=== PATIENT | female | born 1970 ===

== ENCOUNTER 2022-01-31 01:18 | Inpatient (IN) | payer MEDICARE ==
[~2022-01-31] VITALS: Ht 160 cm; Wt 88.2 kg
[2022-01-31] MEDS ORDERED: PANTOPRAZOLE 40 MG (PROTONIX) VIAL IV ONE (01:45)
[2022-01-31] MEDS ORDERED: NS IV 500 ML 500 ML IV SCH ×2 (01:45)
[2022-01-31 05:13] LABS: BASOPHILS # (AUTO) 0.1 10^3/uL (0.0-0.1); BASOPHILS % (AUTO) 1 % (0-10); EOSINOPHILS # (AUTO) 0.1 10^3/uL (0.0-0.3); EOSINOPHILS % (AUTO) 1 % (0-10); HEMATOCRIT 23 % (35-52); LYMPHOCYTES # (AUTO) 2.5 10^3/uL (1.0-4.0); LYMPHOCYTES % (AUTO) 22 % (12-44); MEAN CORPUSCULAR HEMOGLOBIN 23 pg (25-34); MEAN CORPUSCULAR HGB CONC 29 g/dL (32-36); MEAN CORPUSCULAR VOLUME 78 fL (80-99); MEAN PLATELET VOLUME 9.5 fL (9.0-12.2); MONOCYTES # (AUTO) 1.2 10^3/uL (0.0-1.0); MONOCYTES % (AUTO) 10 % (0-12); NEUTROPHILS # (AUTO) 7.5 10^3/uL (1.8-7.8); NEUTROPHILS % (AUTO) 66 % (42-75); PLATELET COUNT 423 10^3/uL (130-400); WHITE BLOOD COUNT 11.4 10^3/uL (4.3-11.0)
[2022-01-31 05:18] LABS: HEMOGLOBIN 6.7 g/dL (11.5-16.0)
[2022-01-31] MEDS: NS IV 1000 ML 1,000 ML IV SCH ×3 (05:20→21:45)
[2022-01-31 05:31] LABS: ALBUMIN 3.9 GM/DL (3.2-4.5); POTASSIUM 3.8 MMOL/L (3.6-5.0)
[2022-01-31 05:33] LABS: CALCIUM 9.2 MG/DL (8.5-10.1)
[2022-01-31 05:34] LABS: TOTAL PROTEIN 6.9 GM/DL (6.4-8.2)
[2022-01-31 05:35] LABS: BILIRUBIN,TOTAL 0.5 MG/DL (0.1-1.0)
--- NOTE | 2022-01-31 05:36 | Tele-ICU Progress Note ---
Progress Note 54F w/o sig PMH presented to OSH for a syncopal episode. At outside ER, found to have Hg 4.5. No history of GIB, no hematemesis. Stool maybe a little bit darker but no overt bleeding. Has been a little weak and tired for the past week. Stool positive for occult blood. After completing 2 units. After 2u, incremented to 6.7, a 3rd unit is being prepared. She has not had any tachycardia or hypotension. - anemia: secondary to subacute blood loss. HD stable and relatively as ymptomatic. Incrementing appropriately. 3rd unit to start when crossed. - GIB: suspected culprit. Most likely causes PUD and colon ca, unable to narrow differentials by history. GI consulted. Focused Exam Height, Weight, BMI Height: '" Weight: lbs. oz. kg; BMI Method: SANTANA HARRIS MD Jan 31, 2022 05:36
[2022-01-31 05:38] LABS: CREATININE SERUM 0.86 MG/DL (0.60-1.30)
[2022-01-31 06:11] LABS: HYPOCHROMASIA MODERATE; LYMPHOCYTES % (MANUAL) 17 %; METAMYELOCYTES % 1 %; MICROCYTOSIS SLIGHT; MONOCYTES % (MANUAL) 5 %; NEUTROPHILS % (MANUAL) 77 %; NUCLEATED RED BLOOD CELLS 3
[2022-01-31 06:20] VITALS: BP 155/83
[2022-01-31 06:40] VITALS: BP 147/79
[2022-01-31 07:00] VITALS: BP 146/78
[2022-01-31] MEDS: PANTOPRAZOLE 40 MG (PROTONIX) VIAL IV SCH ×2 (08:55→20:39)
--- NOTE | 2022-01-31 09:22 | History & Physical-Hospitalist ---
History of Present Illness HPI/Chief Complaint Patient is a 51-year-old female with past medical history of asthma, HTN, deafness who presented to outside facility due to near syncope. She states her symptoms have been going on for couple weeks and she thought her shortness of breath was due to her asthma. Yesterday she was walking and became very short of breath and thought she was going to pass out so had to sit down. She decided to seek evaluation in the emergency room because of the symptoms. She was found to have a hemoglobin of 4.2 and Hemoccult positive stool test. She was transferred here for surgical consultation. She reports feeling well today that her shortness of breath is improving. Video housekeeping lead was used for ASL. Source: patient Exam Limitations: language barrier Date Seen 01/31/22 Time Seen by a Provider: 09: Attending Physician No,Local Physician PCP Admitting Physician: Marcy Cullen MD Attending Physician: Marcy Cullen MD Referring Physician Date of Admission Jan 31, 2022 at 04:38 Home Medications & Allergies Home Medications Reviewed patient Home Medication Reconciliation performed by pharmacy medication reconciliations detail technician and/or nursing. Patients Allergies have been reviewed. Allergies Allergies Coded Allergies No Known Drug Allergies (Unverified01/31/22) Past Ypyjveg-Rlcnsu-Ekhvqf Hx Patient Social History Marrital Status: Tobacco Use?: No Smoking Status: Never a Smoker Smokeless Tobacco Frequency: Never a User Use of E-Cig and/or Vaping dev: No Substance use?: No Alcohol Use?: No Pt feels they are or have been: No Immunizations Up To Date Tetanus Booster (TDap): Less Than 5 Years Hepatitis A: No Hepatitis B: No Current Status status: No status: No Advance Directives: No Communicates: Signs Primary Language: Upper Sorbian Preferred Spoken Language: Upper Sorbian Is interpretation needed?: Yes Sensory deficits: Hearing impairment Implanted or Applied Medical D: None Review of Systems ROS-Unable to Obtain: limited by deafness Constitutional: see HPI EENTM: hearing loss (chronic) Respiratory: cough, dyspnea on exertion, short of breath Cardiovascular: No chest pain Gastrointestinal: No abdominal pain, No constipation, No diarrhea, No hematemesis, No melena, No nausea, No vomiting Physical Exam Physical Exam Vital Signs Vital Signs - First Documented 01/31/22 01/31/22 04:45 06:20 Temp 36.9 Pulse 88 Resp 29 B/P (MAP) 173/81 (111) Pulse Ox 100 O2 Delivery Room Air Capillary Refill : Height, Weight, BMI Height: '" Weight: lbs. oz. kg; 35.78 BMI Method: General Appearance: No Apparent Distress, WD/WN, Obese HEENT: PERRL/EOMI, Moist Mucous Membranes; No Scleral Icterus (L), No Scleral Icterus (R) Neck: Normal Inspection, Supple Respiratory: Lungs Clear, No Accessory Muscle Use, No Respiratory Distress Cardiovascular: Regular Rate, Rhythm, No JVD, No Murmur Gastrointestinal: Normal Bowel Sounds, Non Tender, Soft Extremity: Normal Capillary Refill, No Calf Tenderness, No Pedal Edema Neurologic/Psychiatric: Alert, Oriented x3, Normal Mood/Affect Skin: Normal Color, Warm/Dry Results Results/Procedures Labs Laboratory Tests 01/31/22 04:54 01/31/22 12:25 02/01/22 03:59 Patient resulted labs reviewed. Assessment/Plan Admission Diagnosis GI Bleed with severe anemia Admission Status: Inpatient Order (span 2 midnights) Reason for Inpatient Admission: see below Assessment and Plan GI Bleed with severe anemia Hgb 4.2 at OSH Up to 6.7 with 2 units Surgery consulted, appreciate recs PPI Will need scope, defer timing to surgery HTN BP a little elevated Trend Will allow mild elevation given GI bleed Diagnosis/Problems Diagnosis/Problems (1) GI bleed (2) Anemia (3) HTN (hypertension) (4) Obesity (5) MARCY Segovia MD Jan 31, 2022 09:22
--- NOTE | 2022-01-31 12:03 | CONSULTATION REPORT ---
DATE OF SERVICE: 01/31/2022 HISTORY OF PRESENT ILLNESS: The patient is a 51-year-old female, who has a history of congenital hearing loss. She is able to communicate with sign language as well as mouthing words and can read lips. She had reported fatigue and had noticed some darker stools more recently. She was found to be significantly anemic with a hemoglobin in the 5 range. She has not had a colonoscopy up to this point in her life. She does not report any history of gastroesophageal reflux disease or peptic ulcer disease. PAST MEDICAL HISTORY: Congenital hearing loss. ALLERGIES: No known drug allergies. MEDICATIONS: None. SOCIAL HISTORY: Negative smoke and negative alcohol. FAMILY HISTORY: Noncontributory. REVIEW OF SYSTEMS: A well-nourished female, currently in no acute distress. She is not experiencing any shortness of breath or difficulty in breathing. No chest pain, palpitations or diaphoresis. No nausea, vomiting. No hematemesis and no coffee ground emesis. She does not report any epigastric pain, some slightly darker stools. No red blood per rectum. No fever, chills, and no recent inadvertent weight loss. All other review of systems negative. PHYSICAL EXAMINATION: VITAL SIGNS: Temperature 36.8, blood pressure 166/87, pulse 89, respirations 14, and pulse ox 96% on room air. CHEST: Clear. Good breath sounds bilaterally. HEART: Regular and no murmurs. EXTREMITIES: No lower extremity edema and negative Homans sign. HEENT: No scleral icterus. NECK: No cervical lymphadenopathy. ABDOMEN: Soft, nontender, and nondistended. No palpable masses. SKIN: Warm and dry. LABORATORY DATA: WBC 11.4, hemoglobin 6.7, hematocrit 23, and platelets 423. BUN 11 and creatinine 0.86. ASSESSMENT AND PLAN: A 51-year-old female with anemia of unknown source with darker stools, which may indicate a gastrointestinal bleed. She has also not had a colonoscopy up to this point in life and we will proceed with an EGD and colonoscopy on this admission. Job ID: [id number] DocumentID: [id number] Dictated Date: 01/31/2022 11:52:36 Washing And Screening Plant Supervisor Date: 01/31/2022 12:02:53 Dictated By: CELESTINO MCGILL MD
--- NOTE | 2022-01-31 12:18 | Progress Note-Pre Operative ---
Pre-Operative Progress Note Date of Available H&P: Jan 31, 2022 Date H&P Reviewed: Jan 31, 2022 Time H&P Reviewed: 12:00 History & Physical: No changes noted Pre-Operative Diagnosis: anemia CELESTINO MCGILL MD Jan 31, 2022 12:17
[2022-01-31 12:52] LABS: HEMOGLOBIN 7.3 g/dL (11.5-16.0)
[2022-01-31] MEDS: MILK OF MAGNESIA 400 MG/5 ML 30 ML UDC PO SCH ×4 (15:50→23:56)
--- NOTE | 2022-01-31 22:56 | Progress Note ---
Standard Progress Note Progress Notes/Assess & Plan Date Seen by a Provider: Jan 31, 2022 Time Seen by a Provider: 22:55 Progress/Assessment & Plan pt c/o headache, will order Tylenol, LFT's ok RADHA JENSEN MD Jan 31, 2022 22:56
[2022-01-31] MEDS: ACETAMINOPHEN 325 MG TABLET PO PRN (23:56)
[2022-02-01] MEDS: MILK OF MAGNESIA 400 MG/5 ML 30 ML UDC PO SCH ×3 (04:16→14:26)
[2022-02-01 04:34] LABS: HEMATOCRIT 25 % (35-52); HEMOGLOBIN 7.5 g/dL (11.5-16.0); MEAN CORPUSCULAR HEMOGLOBIN 24 pg (25-34); MEAN CORPUSCULAR HGB CONC 30 g/dL (32-36); MEAN CORPUSCULAR VOLUME 78 fL (80-99); MEAN PLATELET VOLUME 9.4 fL (9.0-12.2); PLATELET COUNT 387 10^3/uL (130-400); WHITE BLOOD COUNT 8.8 10^3/uL (4.3-11.0)
[2022-02-01 04:47] LABS: POTASSIUM 3.3 MMOL/L (3.6-5.0)
[2022-02-01 04:48] LABS: CALCIUM 9.2 MG/DL (8.5-10.1)
[2022-02-01 04:52] LABS: CREATININE SERUM 0.74 MG/DL (0.60-1.30)
[2022-02-01] MEDS ORDERED: NS IV 500 ML 500 ML IV PRN (05:15)
[2022-02-01] MEDS ORDERED: MAGNESIUM 1 GM/100 ML IVPB 100 ML IV SCH (06:00)
[2022-02-01] MEDS ORDERED: POTASSIUM CL 10MEQ/50ML IVPB 50 ML IV SCH (06:00)
[2022-02-01] MEDS ORDERED: KCL 20 MEQ TAB (K-DUR) PO SCH ×2 (06:00)
[2022-02-01] MEDS: POTASSIUM CL 10MEQ/50ML IVPB 50 ML IV SCH ×4 (06:36→10:00)
[2022-02-01] MEDS: PANTOPRAZOLE 40 MG (PROTONIX) VIAL IV SCH ×2 (08:46→19:44)
[2022-02-01] MEDS: NS IV 1000 ML 1,000 ML IV SCH (08:47)
--- NOTE | 2022-02-01 09:06 | Tele-ICU Progress Note ---
Subjective Date Seen by a Provider: Feb 01, 2022 Subjective/Events-last exam This virtual visit was conducted using real time audio/video. Thank you for asking us to see this patient for subacute GIB Recent events: choked on pill earlier. Has recd 3 Units PRBCs PE: VSS. O2 sat 96% on RA. HEENT: No obvious masses, adenopathy or JVD. Chest: clear to auscultation. CV: RRR S1 S2 No murmur or added sounds. Abd: Non-tender. Bowel sounds Y. : Unremarkable. Hurtado N. DIAPHRAGM BUILDER/psychiatric: Grossly intact. No obvious focal findings. Extremities: No edema. Capillary refill < 3 seconds. Skin: unremarkable. Results: Decreased Hb 7.5, K 3.3. Available chart/ vitals / labs / images reviewed. Video assessment done using teleICU camera, rest of exam as per RN. A/P: Critical Care: critically ill patient. Cont. PPI, IVF. Replace K For panendoscopy today. Discussed with WILY Paz. Asked RN to reach out to eICU if any questions or concerns later. Time spent with patient/coordination of care with other health professionals (mins):20 Sepsis Event Evaluation Height, Weight, BMI Height: '" Weight: lbs. oz. kg; 35.78 BMI Method: Exam Exam Patient acknowledged, consented, and participated in this virtual visit which was conducted using real time audio/video Vital Signs Date Time Temp Pulse Resp B/P (MAP) Pulse Ox O2 Delivery O2 Flow Rate FiO2 02/01/22 08:00 92 28 131/67 (88) 94 Room Air 02/01/22 07:32 37.0 02/01/22 07:00 109 22 99 Room Air 02/01/22 07:00 104 02/01/22 06:00 83 17 153/75 (101) 97 Room Air 02/01/22 05:00 84 17 161/93 (115) 95 Room Air 02/01/22 04:00 98 Room Air 02/01/22 04:00 85 12 135/74 (94) 96 Room Air 02/01/22 03:00 85 13 126/65 (85) 93 Room Air 02/01/22 02:00 90 34 133/69 (90) 96 Room Air 02/01/22 01:00 93 20 140/67 (91) 96 Room Air 02/01/22 01:00 100 02/01/22 00:00 113 27 154/88 (110) 99 Room Air 02/01/22 00:00 97 Room Air 01/31/22 23:00 89 22 131/74 (93) 95 Room Air 01/31/22 22:00 84 19 130/71 (90) 94 Room Air 01/31/22 21:00 85 17 145/78 (100) 98 Room Air 01/31/22 20:00 98 Room Air 01/31/22 20:00 84 19 143/79 (100) 96 Room Air 01/31/22 19:37 37.1 01/31/22 19:00 91 24 143/78 (99) 97 Room Air 01/31/22 19:00 90 01/31/22 18:00 103 19 145/71 (95) 97 Room Air 01/31/22 17:00 98 24 150/84 (106) 97 Room Air 01/31/22 16:00 97 Room Air 01/31/22 16:00 90 15 163/83 (109) 98 Room Air 01/31/22 15:45 37.1 01/31/22 15:00 90 16 149/76 (100) 95 Room Air 01/31/22 14:00 93 13 147/75 (99) 96 Room Air 01/31/22 13:00 79 28 135/73 (93) 94 Room Air 01/31/22 13:00 89 01/31/22 12:00 97 Room Air 01/31/22 12:00 36.5 01/31/22 12:00 87 14 154/82 (106) 96 Room Air 01/31/22 11:00 89 14 166/87 (113) 96 Room Air 01/31/22 10:00 93 15 152/84 (106) 97 Room Air I & O 02/01/22 07:00 Intake Total 4550 ml Balance 4550 ml Height & Weight Height: '" Weight: lbs. oz. kg; 35.78 BMI Method: General Appearance: No Apparent Distress, WD/WN, Obese HEENT: PERRL/EOMI, Moist Mucous Membranes; No Scleral Icterus (L), No Scleral Icterus (R) Neck: Normal Inspection, Supple Respiratory: Lungs Clear, No Accessory Muscle Use, No Respiratory Distress Cardiovascular: Regular Rate, Rhythm, No JVD, No Murmur Extremity: Normal Capillary Refill, No Calf Tenderness, No Pedal Edema Neurologic/Psychiatric: Alert, Oriented x3, Normal Mood/Affect Skin: Normal Color, Warm/Dry Results Lab Laboratory Tests 01/31/22 04:54 01/31/22 12:25 02/01/22 03:59 Assessment/Plan Assessment/Plan See free text. Critical Care: Critically Ill Patient BOBBY HOOK MD Feb 01, 2022 09:06
--- NOTE | 2022-02-01 10:05 | Progress Note - Hospitalist ---
Subjective HPI/CC On Admission Date Seen by Provider: Feb 01, 2022 Time Seen by Provider: 10:00 Patient is a 51-year-old female with past medical history of asthma, HTN, deafness who presented to outside facility due to near syncope. She states her symptoms have been going on for couple weeks and she thought her shortness of breath was due to her asthma. Yesterday she was walking and became very short of breath and thought she was going to pass out so had to sit down. She decided to seek evaluation in the emergency room because of the symptoms. She was found to have a hemoglobin of 4.2 and Hemoccult positive stool test. She was transferred here for surgical consultation. She reports feeling well today that her shortness of breath is improving. Video packing inspector was used for ASL. Subjective/Events-last exam ASL interpretor used ([place]) Patient reports doing well. No complaints. [place] earlier but better with Tylenol. Planning for scope today. Objective Exam Vital Signs Vital Signs Date Time Temp Pulse Resp B/P (MAP) Pulse Ox O2 Delivery O2 Flow Rate FiO2 02/01/22 09:00 112 23 Room Air 02/01/22 08:00 98 02/01/22 07:32 37.0 Capillary Refill : General Appearance: No Apparent Distress, WD/WN Respiratory: Lungs Clear, No Respiratory Distress Cardiovascular: Regular Rate, Rhythm, No Murmur Gastrointestinal: Normal Bowel Sounds, Non Tender, Soft Neurologic/Psychiatric: Alert, Oriented x3 Results/Procedures Lab Laboratory Tests 01/31/22 12:25 02/01/22 03:59 Patient resulted labs reviewed. Assessment/Plan Assessment and Plan Assess & Plan/Chief Complaint GI Bleed with severe anemia Hgb 4.2 at OSH Up to 7.5 this AM and stable after 3 total units pRBCs Surgery consulted, appreciate recs Planning for scope today PPI HTN BP improved this AM Trend DVT ppx: SCDs only Critical Care Critically Ill Patient Diagnosis/Problems Diagnosis/Problems (1) GI bleed (2) Anemia (3) HTN (hypertension) (4) Obesity (5) MARCY Segovia MD Feb 01, 2022 10:05
[2022-02-01] MEDS ORDERED: LACTATED RINGERS 1,000 ML IV STA (10:40)
[2022-02-01] MEDS ORDERED: LIDOCAINE JELLY 2% 6 ML SYRINGE MM PRN (10:45)
[2022-02-01] MEDS ORDERED: HURRICAINE EXT TUBE (BENZOCAINE) XX PRN (10:45)
[2022-02-01] MEDS ORDERED: LACTATED RINGERS 1,000 ML IV ONE (11:13)
[2022-02-01] MEDS ORDERED: MIDAZOLAM 2 MG/2 ML (VERSED) VIAL ONE (13:55)
[2022-02-01] MEDS ORDERED: PROPOFOL INJECTION 50 ML IV ONE ×2 (13:55→14:18)
[2022-02-01] MEDS ORDERED: HURRICAINE EXT TUBE (BENZOCAINE) ONE (13:56)
[2022-02-01] MEDS ORDERED: LIDOCAINE JELLY 2% 6 ML SYRINGE ONE (13:56)
[2022-02-01 14:35] VITALS: BP 140/72
[2022-02-01 14:40] VITALS: BP 133/76
--- NOTE | 2022-02-01 14:40 | Anesthesia-General Post-Op ---
MAC Patient Condition Mental Status/LOC: Same as Preop Cardiovascular: Satisfactory Nausea/Vomiting: Absent Respiratory: Satisfactory Pain: Controlled Complications: Absent Post Op Complications Complications None Follow Up Care/Instructions Patient Instructions None needed. Anesthesiology Discharge Order Discharge Order Patient is doing well, no complaints, stable vital signs, no apparent adverse anesthesia problems. No complications reported per nursing. LANA NEGRETE CRNA Feb 01, 2022 14:40
[2022-02-01 14:45] VITALS: BP 134/74
--- NOTE | 2022-02-01 14:45 | Progress Note-Post Operative ---
Post-Operative Progess Note Surgeon (s)/Hot Top Liner (s) Surgeon CELESTINO MCGILL MD Hot Top Liner: none Pre-Operative Diagnosis anemia Post-Operative Diagnosis reflux esophagus(grade C) with stricture, large HH(5cm), moderate gastritis. mild chronic stage 1 ext and int hemorrhoids. mild sigoid diverticulosis. Procedure & Operative Findings Date of Procedure 02/01/22 Procedure Performed/Findings EGD with bx and balloon. colonoscopy. Anesthesia Type mac Estimated Blood Loss Estimated blood loss (mL): minimal Specimens/Packing Specimens Removed ge jxn, ulcer, antrum. CELESTINO MCGILL MD Feb 01, 2022 14:45
--- NOTE | 2022-02-01 21:36 | OPERATIVE REPORT ---
DATE OF SERVICE: 02/01/2022 ADMITTING PHYSICIAN: Dr. Cullen. PreopDx:anemia PostopDx:reflux esophagitis(grade C),esophageal stricture,large HH,moderate gastritis. mild chronic stage 1 ext and int hemorrhoids,mild sigmoid diverticulosis. Procedure:EGD with bx and balloon dilatation Colonoscopy Surgeon:Yvette Anesth:MAC EBL:minimal Disp:stable condition INDICATIONS: The patient is a 51-year-old female who reported feeling fatigued and noticing darker stools. She had workup done and was found to be significantly anemic with a hemoglobin in the 5 range. The patient does have a history of congenital hearing loss; however, is able to communicate with sign language as well as mouth words and can read lips. She has not had a colonoscopy up to this point in her life. She does not report any classic symptoms of gastroesophageal reflux disease. She also does not report any episodes of hematemesis, no coffee ground emesis. DESCRIPTION OF PROCEDURE: The patient was brought to the endoscopy suite, laid in the left lateral decubitus position. After adequate IV pain and sedative medications and monitored anesthesia care, the mouthpiece was applied. The endoscope was then placed in the mouth, visualizing the pharynx and hypopharyngeal region. Vocal cords, epiglottis and vallecula identified and appeared to be normal. The endoscope was then gently intubated into the esophageal opening and esophagus insufflated. The endoscope was then advanced through the first, second and third portion of esophagus at the level of GE junction, a significant stricture was identified as well as reflux esophagitis Clark grade C. A biopsy was taken with forceps with visualization of good hemostasis. The endoscope was then advanced in the stomach and endoscope retroflexed, visualizing a large hiatal hernia, greater than 5 cm in size and within the reflux portion of the hernia was a small ulcer approximately 5 mm in size with an overlying fibrin clot and no active bleeding. This is consistent with a Agustin's ulcer and the likely cause of her anemia. There was a moderate severity gastritis. Pylorus and duodenum appeared normal. The balloon was then placed in the stomach and pulled back to the area of the stricture. We then proceeded with a graded stepwise dilatation to approximately 4 atmospheres of pressure or 19 mm in luminal diameter with moderate resistance and left this in place for approximately 60 seconds. The balloon was then desufflated and removed with visualization of good hemostasis as well as no mucosal tears. The endoscope was then slowly withdrawn while taking a second look and suctioning of residual air with no additional findings. A digital rectal examination was performed, which revealed mild stage I external and internal hemorrhoids, not actively edematous nor inflamed and no bleeding. Normal sphincter tone was felt and there were no palpable masses. The endoscope was then intubated into the anus and rectum gently insufflated. The endoscope was then advanced through the valves of Long of the rectum with no polyps, nor any neoplasms identified. The endoscope was then advanced through the sigmoid colon where mild sigmoid diverticulosis identified. The endoscope was then advanced through the remainder of the descending, transverse and ascending colon to the cecum, which were normal. There were no polyps or any active bleeding sources identified. The endoscope was then slowly withdrawn while taking a second look and suctioning of residual air with no additional findings. The patient tolerated the procedure well. We will recommend the necessary dietary accommodation including small and more frequent meals, avoiding to eating at night as well as head elevation while lying supine. She also needs to avoid caffeinated beverages, spicy, greasy and acidic foods. Due to the hiatal hernia and the ulceration, we will place her on Protonix 40 mg daily. We will also recommend high fiber diet with incorporation of a fiber supplement, which should equal or exceed 25 grams daily to promote soft stools on a daily basis. No polyps were identified, and she does not have any family history of colon cancer and if asymptomatic, does not need another colonoscopy for another 10 years. Job ID: [id number] DocumentID: [id number] Dictated Date: 02/01/2022 14:46:12 Transcription Coordinator Date: 02/01/2022 21:35:20 Dictated By: CELESTINO MCGILL MD [facility]INE HOSPITALHaydee
[2022-02-02] MEDS: ACETAMINOPHEN 325 MG TABLET PO PRN (02:56)
[2022-02-02 08:53] LABS: HEMOGLOBIN 7.8 g/dL (11.5-16.0)
[2022-02-02] MEDS: PANTOPRAZOLE 40 MG (PROTONIX) VIAL IV SCH (09:02)
[2022-02-02 12:35] VITALS: BP 173/81
[2022-02-02] MEDS ORDERED: PANT40TA52 PO (13:32)
[2022-02-02] MEDS ORDERED: FERR325T18 PO (13:32)
--- NOTE | 2022-02-02 22:48 | Discharge Summary ---
Discharge Summary Hospital Course Problems/Dx: (1) GI bleed (2) Anemia (3) HTN (hypertension) (4) Obesity (5) Deaf Hospital Course Date of Admission: Jan 31, 2022 at 04:38 Admission Diagnosis : Acute blood loss anemia due to GI bleeding Family Physician/Provider: Elyssa Mac Physician Date of Discharge: 02/02/22 Discharge Diagnosis: Acute blood loss anemia due to GI bleeding Hospital Course: Elizabeth Lorenzana is a 51 year old female who was admitted with acute blood loss anemia due to GI bleeding. Her hemoglobin was 4. She was transfused 3 units PRBC and her hemoglobin improved. Surgery was consulted and she underwent EGD and colonoscopy. She was found to have esophagitis. She also had an esophageal stricture and a balloon dilitation was performed. Her colonoscopy revealed hemorrhoids. There was no evidence of active bleeding. She had no evidence of ongoing bleeding and her hemoglobin remained stable. She was started on Protonix and Iron supplements. She was discharged home in stable condition. She should follow up with her PCP in a week or two. Labs and Pending Lab Test: Laboratory Tests 02/02/22 08:45: Hemoglobin 7.8L, Hematocrit 27L 02/02/22 13:21: Lab Scanned Report Transfusion Reaction Form Microbiology 01/31/22 MRSA Screen - Final, Complete MRSA not isolated Home Meds Active Ferrous Sulfate 325 Mg (65 Mg Iron) Tablet 325 Mg PO DAILY 30 Days Pantoprazole Sodium 40 Mg Tablet.dr 40 Mg PO BID 60 Days Assessment/Pt Instructions See instructions Discharge Planning: >30 minutes discharge planning Discharge Instructions Discharge Diet: No Restrictions Activity as Tolerated: Yes Consultations Surgery Discharge Physical Examination Vital Signs Vital Signs Date Time Temp Pulse Resp B/P (MAP) Pulse Ox O2 Delivery O2 Flow Rate FiO2 02/02/22 12:35 36.2 93 18 173/81 (111) 95 Room Air 02/01/22 14:40 10.00 General Appearance: No Apparent Distress, WD/WN Respiratory: Lungs Clear, No Respiratory Distress Cardiovascular: Regular Rate, Rhythm, No Murmur Gastrointestinal: Normal Bowel Sounds, Soft Extremity: Normal Inspection, No Pedal Edema Skin: Normal Color, Warm/Dry Neurologic/Psychiatric: Alert, Normal Mood/Affect Allergies: Coded Allergies: No Known Drug Allergies (Unverified , 01/31/22) Discharge Summary Date of Admission Jan 31, 2022 at 04:38 Date of Discharge Feb 02, 2022 at 15:23 Discharge Date: Feb 02, 2022 Discharge Time: 15:23 Admission Diagnosis GI Bleed with severe anemia Consults/Procedures Consulations Surgery Procedures EGD/colonoscopy Discharge Diagnosis (1) GI bleed (2) Anemia (3) HTN (hypertension) (4) Obesity (5) RAVEN Islas MD Feb 02, 2022 22:48
== END 2022-02-02 15:23 | disposition home or self-care (01) | DRG 368 ==
LOC: ICU 04:38 → 4TH 02-01 18:15
PROVIDERS: ADMIT Family Medicine; ATTEND Internal Medicine
PROC: 0DB68ZX Excision of Stomach, Via Natural or Artificial Opening Endoscopic, Diagnostic (ICD-10-PCS; 2022-02-01)
PROC: 0DJD8ZZ Inspection of Lower Intestinal Tract, Via Natural or Artificial Opening Endoscopic (ICD-10-PCS; 2022-02-01)
PROC: 0D758ZZ Dilation of Esophagus, Via Natural or Artificial Opening Endoscopic (ICD-10-PCS; principal; 2022-02-01 13:55)
PROC: 0DB48ZX Excision of Esophagogastric Junction, Via Natural or Artificial Opening Endoscopic, Diagnostic (ICD-10-PCS; 2022-02-01 13:55)
DX: K21.01 Gastro-esophageal reflux disease with esophagitis, with bleeding (principal); K29.71 Gastritis, unspecified, with bleeding; K57.31 Diverticulosis of large intestine without perforation or abscess with bleeding; D62 Acute posthemorrhagic anemia; K22.2 Esophageal obstruction; I10 Essential (primary) hypertension; E66.9 Obesity, unspecified; H91.90 Unspecified hearing loss, unspecified ear; J45.909 Unspecified asthma, uncomplicated; K64.8 Other hemorrhoids; K64.4 Residual hemorrhoidal skin tags; K44.9 Diaphragmatic hernia without obstruction or gangrene; Z68.34 Body mass index [BMI] 34.0-34.9, adult
CPT/HCPCS: 36415; 80048; 80053; 85007; 85014; 85018; 85027; 86850; 86900; 86901; 86920; 87081